=== PATIENT | male | born 1960 | race African-American/Black ===

== ENCOUNTER → 2017-04-11 | Outpatient (CLI) | payer OTHER ==
--- NOTE | ~2017-04-11 | EXE ---
[facility] [employer] [place] [address] STRESS ECHOCARDIOGRAM Name: TERESA GRIER Room #: COLTON NIYAH Noriega#: [id number] Admission: 04/11/17 Attend Phys: Jose Ramon LisetteRigoberto CannonGautam, Discharge: Date of : 60 Date of Service: 04/11/17 1706 Report #: [id number] THIS REPORT FOR: //name// APPROVED REPORT Exam: Stress Echocardiogram Indication: Abnormal ECG Patient Location: Out-Patient Stress Nurse: Nica Brody RN Room #: Echo lab Status: routine Ht: 5 ft 8 in HR: 54 bpm BP: 132/82 mmHg Procedure The patient underwent an Exercise Stress Test using the Reynaldo Protocol. Blood pressure, heart rate, and EKG were monitored. An Echocardiogram was performed by nitriles lab technician in four stages in quad fashion. At peak stress, four selected images were obtained and placed side by side with resting images for comparison. Stress Test Details Stress Test: Exercise stress testing was performed using a Reynaldo protocol. HR Resting HR: 54 bpm Max Heart Rate (APMHR): 164 bpm Max HR Achieved: 166 bpm Target HR (85% APMHR): 139 bpm % of APMHR: 101 Recovery HR: 96 bpm HR response to stress: Normal HR response to stress BP Resting BP: 132/82 mmHg Max BP: 204/82 mmHg Recovery BP: 144/90 mmHg ECG Clinical Reason for Termination: Maximal effort Exercise duration: 12 min 13 sec Highest Stage Achieved: Stage 5: 5.0 mph at 18% grade. Exercise capacity: 13.9 METs Overall Exercise Capacity for Age: Excellent [facility] [address] [place] [address] STRESS ECHOCARDIOGRAM Name: TERESA GRIER Room #: COLTON Noriega#: [id number] Admission: 04/11/17 Attend Phys: Jose Ramon Florez, Discharge: Date of : 60 Date of Service: 04/11/171705 Report #: [id number] Pre-Stress Echo The resting Echocardiogram showed normal left ventricular contractility with an estimated Ejection Fraction of about 60-65%. Conclusion Clinical Response: Non-ischemic Exercise Capacity: Superior Stress ECG Response: Non-ischemic Stress Echo Images: Non-ischemic Other Information Study Quality: Good <ELECTRONICALLY SIGNED> By: Jose Ramon Florez MD, FACC 04/11/171705 05 05 Jose Ramon Florez MD, FACC /INF
== END ==
LOC: CV 09:23
DX: R94.31 Abnormal electrocardiogram [ECG] [EKG] (principal); R01.1 Cardiac murmur, unspecified